=== PATIENT | male | born 1950 | race Caucasian/White ===

== ENCOUNTER 2018-12-24 09:10 | Day surgery (SDC) | payer MEDICARE ==
[~2018-12-24 09:10] MED LIST: FURO40TA4 PO
[2018-12-24] MEDS ORDERED: LIDOcaine/PRILOcaine 5gm cream TP ONE (10:05)
[2018-12-24] MEDS ORDERED: POTA20PA40 PO (10:13)
[2018-12-24] MEDS ORDERED: SPIR25TA5 PO (10:13)
[2018-12-24] MEDS ORDERED: LOSA25TA41 PO (10:14)
[2018-12-24] MEDS ORDERED: CLOP75TA15 PO (10:15)
[2018-12-24] MEDS ORDERED: SIMV20TA5 PO (10:15)
[2018-12-24] MEDS ORDERED: ASPI-1265 PO (10:15)
[2018-12-24] MEDS ORDERED: LIDOcaine 1%/PF 5ML 10 MG/ML VIAL ONE (10:26)
--- NOTE | 2018-12-24 10:45 | NUR ---
Patient ambulated independently from [facility] accompanied by and was admitted to outpatient wound care for physician visit with Luis Manuel Kc MD. Dressing removed, wound cleansed and Emla cream applied per order. New patient assessment completed with review of patient's medical history and current medication list. 1030 - Dr. cK at bedside accompanied by RN. Wound assessed, time out performed by MD/RN. Procedure performed as detailed in the physician progress/procedure note. Plan of care discussed with patient. Dressings placed per MD orders. Patient instructed on the signs and symptoms of infection and to call the Wound Center if any occur or to go to the ED if we are closed: Increased pain in wound Increase in drainage from the wound Redness in the skin surrounding the wound Bleeding from the wound Temperature of 101 or greater Patient instructed that the weight of their body puts a large amount of pressure on their wounds. This pressure keeps the new tissue from growing and inhibits new blood vessels from forming. Explained that, if they continue to bear weight on a body part that has a wound, the time it takes to heal the wound increases, the wound may get worse or the wound may not heal at all. Patient verbalized understanding of all discharge instructions and plan of care and ambulated independently out to [facility] with his and is in stable condition with no sign or symptom of distress at time of discharge.
[2019-01-01] MEDS ORDERED: NITR0.4T51 SL (15:37)
[2019-01-01] MEDS ORDERED: FURO80TA87 PO (15:37)
== END 2018-12-24 11:15 | disposition home or self-care (01) ==
LOC: WOUND CARE 09:10
PROVIDERS: ATTEND Surgery
DX: L98.492 Non-pressure chronic ulcer of skin of other sites with fat layer exposed (principal); C44.529 Squamous cell carcinoma of skin of other part of trunk; I10 Essential (primary) hypertension; E78.5 Hyperlipidemia, unspecified; I25.10 Atherosclerotic heart disease of native coronary artery without angina pectoris; Z95.1 Presence of aortocoronary bypass graft; Z95.5 Presence of coronary angioplasty implant and graft
CPT/HCPCS: 11602; J2001; 11100; A6021; A6206; A6212

== ENCOUNTER 2018-12-31 09:15 | Outpatient (CLI) | payer MEDICARE ==
[~2018-12-31 09:15] MED LIST changes: +ASPI-1265 PO; +CLOP75TA15 PO; +LOSA25TA41 PO; +POTA20PA40 PO; +SIMV20TA5 PO; +SPIR25TA5 PO
[2018-12-31] MEDS ORDERED: LIDOcaine/PRILOcaine 5gm cream TP ONE (09:48)
[2018-12-31] MEDS ORDERED: ENOX40SY7 SUBCUT (15:08)
--- NOTE | 2018-12-31 15:09 | NUR ---
0941 Patient ambulated safely into [facility]. Patient admitted to outpatient wound care clinic for follow-up visit with physician. Dressing removed, wound cleansed. Patient assessed for changes in conditions, medications and medical history. Patient showed no s/s of distress at time of assessment. 7282 at bedside accompanied by RN. Wounds assessed as detailed in the physician progress/procedure note. Plan of care discussed with patient. Pt to be schedule for excision of Basal Cell Ca left chest wall on Friday01/05/19 Dressings placed per MD orders. Patient instructed on the signs and symptoms of infection and to call the Wound Center if any occur or to go to the ED if we are closed: Increased pain in wound Increase in drainage from the wound Redness in the skin surrounding the wound Bleeding from the wound Temperature of 101 or greater Patient instructed that the weight of their body puts a large amount of pressure on their wounds. This pressure keeps the new tissue from growing and inhibits new blood vessels from forming. Explained that, if they continue to bear weight on a body part that has a wound, the time it takes to heal the wound increases, the wound may get worse or the wound may not heal at all. Patient verbalized understanding of all discharge instructions and plan of care. Patient ambulated independently out to [facility] and is in stable condition with no sign or symptom of distress at time of discharge.
[2019-01-01] MEDS ORDERED: FURO80TA87 PO (15:37)
[2019-01-01] MEDS ORDERED: NITR0.4T51 SL (15:37)
== END 2018-12-31 10:49 | disposition home or self-care (01) ==
LOC: WOUND CARE 09:15 → EDSTATUS 09:30 → WOUND CARE 10:49
PROVIDERS: ATTEND Surgery
DX: L98.492 Non-pressure chronic ulcer of skin of other sites with fat layer exposed (principal); C44.529 Squamous cell carcinoma of skin of other part of trunk; I10 Essential (primary) hypertension; E78.5 Hyperlipidemia, unspecified; I25.10 Atherosclerotic heart disease of native coronary artery without angina pectoris; Z95.1 Presence of aortocoronary bypass graft
CPT/HCPCS: A6021; A6212; G0463

== ENCOUNTER → 2019-01-05 | Day surgery (SDC) | payer MEDICARE ==
[2019-01-01 15:17] LABS: CLARITY,URINE CLEAR (Clear); COLOR,URINE YELLOW (Yellow); GLUCOSE, URINE NEGATIVE (Neg); KETONES,URINE NEGATIVE (Neg); LEUKOCYTE ESTERASE ,URINE NEGATIVE (Neg); NITRITES, URINE NEGATIVE (Neg); OCCULT BLOOD,URINE TRACE-INTACT (Neg); PROTEIN,URINE NEGATIVE (Neg)
[2019-01-01 15:19] LABS: BASOPHILS % (AUTO) 0.3 % (0-1); EOSINOPHILS # (AUTO) 0.3 X10'3 (0-0.9); LYMPHOCYTES % (AUTO) 21.4 % (21-51); MEAN CORPUSCULAR HEMOGLOBIN 31.8 PG (27.0-31.0); MEAN CORPUSCULAR HGB CONC 34.1 g/dL (33.0-36.5); MEAN CORPUSCULAR VOLUME 93.2 FL (78-98); MEAN PLATELET VOLUME 8.4 FL (7.4-10.4); MONOCYTES # (AUTO) 0.7 X10'3 (0-0.9); MONOCYTES % (AUTO) 6.9 % (2-12); NEUTROPHILS # (AUTO) 6.5 X10'3 (1.8-7.7); NEUTROPHILS % (AUTO) 68.4 % (42-75); PRE OP HEMOGLOBIN 14.3 g/dL (14.0-17.9); PRE OP PLATELET COUNT 224 X10'3 (140-440); RED BLOOD COUNT 4.51 X10'6 (4.70-6.10); RED CELL DISTRIBUTION WIDTH 14.7 % (11.5-14.5)
[2019-01-01 15:25] LABS: UA COLLECTION TYPE NON-SPECIFIED
[2019-01-01 15:26] LABS: BACTERIA,URINE NONE SEEN /HPF (Neg); MUCUS STRANDS NONE SEEN /LPF (Neg); RBC,URINE 0-2 /HPF (0-2); SQUAMOUS EPITHELIAL CELL,UR NONE SEEN /LPF (FEW); WBC,URINE NONE SEEN /HPF (0-4)
[2019-01-01 15:34] LABS: ALBUMIN/GLOBULIN RATIO 1.1 (1.1-1.5); ALKALINE PHOSPHATASE 100 IU/L (46-116); BLOOD UREA NITROGEN 12 MG/DL (7-18); BUN/CREATININE RATIO 11.7 (5.4-32.0); CALCIUM 9.6 MG/DL (8.5-10.1); CHLORIDE 98 MMOL/L (99-107); CREATININE 1.03 MG/DL (0.60-1.10); PRE OP ALT 24 U/L (30-65); PRE OP ANION GAP 8 (8-16); PRE OP AST 12 U/L (10-37); PRE OP BILIRUB, TOTAL 0.5 MG/DL (0.0-1.0); PRE OP GLUCOSE 138 MG/DL (70-104); PRE OP POTASSIUM 3.5 MMOL/L (3.4-5.1); PRE OP SODIUM 135 MMOL/L (135-145); TOTAL CARBON DIOXIDE 29.2 MMOL/L (24-32); TOTAL PROTEIN 7.8 G/DL (6.4-8.2); eGFR 72 ML/MIN
[2019-01-01 15:40] LABS: PRE OP PROTIME 10.3 SECONDS (9.0-12.0)
[~2019-01-05] VITALS: Ht 182.9 cm; Wt 97.5 kg
[~2019-01-05] MED LIST changes: +ENOX40SY7 SUBCUT; -FURO40TA4 PO; +FURO80TA87 PO; +LIDOcaine 1% 30ml preserv. free vial ONE; +NITR0.4T51 SL; +albuterol 2.5 MG/3 ML nebule NEB ONE; +ceFAZolin 2gm in dextrose, iso 100 ML IV ONE; +famotidine 20mg tablet PO ONE; +fentaNYL/PF 50MCG/1 ML 2ML syringe ONE; +meperidine/PF 25mg/ml syringe IV PRN; +midazolam 2 mg/2 ml injection ONE; +morphine 4 MG/ML inj SYRINge IV PRN; +ondansetron/PF 4mg/2ml inj IV PRN; +proCHLORperazine 10 MG/2 ml inj IV PRN; +propofol inj 20 ML IV ONE; +ringers solution, lacted 1,000 ML IV SCH
[2019-01-05 14:16] VITALS: BP 138/77
[2019-01-05 14:25] VITALS: BP 138/77
[2019-01-05 14:56] VITALS: BP 127/66
--- NOTE | 2019-01-05 14:56 | NUR ---
Received from OR via [facility] , accompanied by Anesthesiologist dr rosa and report given by Anesthesiolgist. pt awake comfortable, cheerful, denies pain and nausea. States he is ready for DC to home.
--- NOTE | 2019-01-05 15:00 | NUR ---
drsg to anterior chest CDI.
[2019-01-05 15:06] VITALS: BP 114/69
--- NOTE | 2019-01-05 15:36 | NUR ---
PT WAS DC'D TO HOME SAFELY VIA W/C. ALL BELONGINGS W/ PT UPON DC TO HOME. PT AND SPOUSE BOTH STATE UNDERSTANDING. DRSG TO ANTERIOR CHEST CDI. PT WAS DC'D TO PERSONAL VEHICLE BEING DRIVEN BY HIS .
== END | disposition home or self-care (01) ==
LOC: PAS 11:19
PROVIDERS: ATTEND Surgery
DX: C44.519 Basal cell carcinoma of skin of other part of trunk (principal); I25.10 Atherosclerotic heart disease of native coronary artery without angina pectoris; I73.9 Peripheral vascular disease, unspecified; I10 Essential (primary) hypertension; Z95.5 Presence of coronary angioplasty implant and graft
CPT/HCPCS: 11606; 36415; 71046; 80053; 81001; 82948; 85025; 85610; 85730; J0690; J2250; J2704; J3010; J3490; 88305; A6449; A7000; J7120

== ENCOUNTER 2019-01-14 09:15 | Outpatient (CLI) | payer MEDICARE ==
[~2019-01-14 09:15] MED LIST changes: -LIDOcaine 1% 30ml preserv. free vial ONE; -albuterol 2.5 MG/3 ML nebule NEB ONE; -ceFAZolin 2gm in dextrose, iso 100 ML IV ONE; -famotidine 20mg tablet PO ONE; -fentaNYL/PF 50MCG/1 ML 2ML syringe ONE; -meperidine/PF 25mg/ml syringe IV PRN; -midazolam 2 mg/2 ml injection ONE; -morphine 4 MG/ML inj SYRINge IV PRN; -ondansetron/PF 4mg/2ml inj IV PRN; -proCHLORperazine 10 MG/2 ml inj IV PRN; -propofol inj 20 ML IV ONE; -ringers solution, lacted 1,000 ML IV SCH
--- NOTE | 2019-01-14 16:36 | NUR ---
Patient ambulated independently from [facility] and was admitted to outpatient wound care for physician visit with Luis Manuel Kc MD. Dressing removed and wound cleansed. Patient assessed for changes in conditions, medications and medical history. Dr. Kc at bedside accompanied by RN. Wound assessed and no debridement was done. Plan of care discussed with patient. No dressings ordered. Patient instructed on the signs and symptoms of infection and to call the Wound Center if any occur or to go to the ED if we are closed: Increased pain in wound Increase in drainage from the wound Redness in the skin surrounding the wound Bleeding from the wound Temperature of 101 or greater Patient instructed that the weight of their body puts a large amount of pressure on their wounds. This pressure keeps the new tissue from growing and inhibits new blood vessels from forming. Explained that, if they continue to bear weight on a body part that has a wound, the time it takes to heal the wound increases, the wound may get worse or the wound may not heal at all. Patient verbalized understanding of all discharge instructions and plan of care and ambulated independently out to [facility] in stable condition with no sign or symptom of distress at time of discharge. Addendum: 01/14/19 at 1642 by Yareli Owen RN Amended: Links added.
== END 2019-01-14 10:05 | disposition home or self-care (01) ==
LOC: WOUND CARE 09:15 → EDSTATUS 09:30 → WOUND CARE 10:05
PROVIDERS: ATTEND Surgery
DX: T81.89XA Other complications of procedures, not elsewhere classified, initial encounter (principal); L98.492 Non-pressure chronic ulcer of skin of other sites with fat layer exposed; C44.529 Squamous cell carcinoma of skin of other part of trunk; I10 Essential (primary) hypertension; E78.5 Hyperlipidemia, unspecified; I25.10 Atherosclerotic heart disease of native coronary artery without angina pectoris; Z95.1 Presence of aortocoronary bypass graft; Y83.8 Other surgical procedures as the cause of abnormal reaction of the patient, or of later complication, without mention of misadventure at the time of the procedure
CPT/HCPCS: G0463